=== PATIENT | male | born 1995 | race Caucasian/White ===

== ENCOUNTER 2017-11-28 14:55 | Emergency (ER) | payer OTHER ==
[2017-11-28 17:34] LABS: KETONE, URINE AUTO RFX NEGATIVE (NEGATIVE); LEUKOCYTE ESTERASE UR AUTO RFX NEGATIVE (NEGATIVE); MUCUS, URINE RFX SMALL (NEGATIVE); NITRITE, URINE AUTO RFX NEGATIVE (NEGATIVE); RBC, URINE AUTO RFX 2 /HPF (0-3); SPECIFIC GRAVITY UR AUTO RFX 1.027 (1.002-1.035); SQUAM EPITHELIAL CELL UR AURFX 0 /HPF (0-6); WBC, URINE AUTO RFX 1 /HPF (0-3)
[2017-11-28] MEDS: GASTROGRAFIN SOLUTION 30ML PO ×2 (17:54→18:29)
[2017-11-28] MEDS: NS 1,000 ML IV (17:55)
[2017-11-28 18:12] LABS: BASO # 0.1 10^3/uL (0.0-0.2); BASO % 0.6 % (0.0-1.0); EOS # 0.1 10^3/uL (0.0-0.50); EOS % 1.4 % (0.0-3.0); HEMATOCRIT 49.4 % (42.0-52.0); HEMOGLOBIN 17.3 g/dl (13.5-17.5); IMMATURE GRANULOCYTE % 0.4 % (0-3.0); LYMPH # 2.2 10^3/uL (1.5-6.5); LYMPH % 23.9 % (24.0-44.0); MEAN CORPUSCULAR HEMOGLOBIN 31.7 pg (27.0-33.0); MEAN CORPUSCULAR VOLUME 90.6 fl (80.0-96.0); MONO # 0.8 10^3/uL (0.0-0.8); MONO % 9.1 % (0.0-5.0); NEUTROPHILS # 5.8 10^3/uL (1.8-7.7); NEUTROPHILS % 64.6 % (36.0-66.0); PLATELET COUNT, AUTOMATED 268 10^3/uL (150-450); RED BLOOD COUNT 5.45 10^6/uL (4.30-6.10); RED CELL DISTRIBUTION WIDTH 12.4 % (11.5-14.5)
[2017-11-28 18:31] LABS: ALBUMIN 4.7 GM/DL (3.2-5.2); ALBUMIN/GLOBULIN RATIO 1.21 (1.00-1.93); ALKALINE PHOSPHATASE 64 U/L (45-117); ALT/SGPT 32 U/L (12-78); ANION GAP 9 MEQ/L (8-16); AST/SGOT 22 U/L (7-37); BILIRUBIN,DIRECT 0.2 MG/DL (0.0-0.2); BILIRUBIN,TOTAL 1.4 MG/DL (0.2-1.0); BLOOD UREA NITROGEN 19 MG/DL (7-18); CALCIUM LEVEL 9.3 MG/DL (8.5-10.1); CARBON DIOXIDE LEVEL 29 MEQ/L (21-32); CHLORIDE LEVEL 101 MEQ/L (98-107); CREATININE FOR GFR 1.07 MG/DL (0.70-1.30); GLOMERULAR FILTRATION RATE > 60.0 (>60); GLUCOSE, FASTING 82 MG/DL (70-100); LIPASE 119 U/L (73-393); POTASSIUM SERUM 3.8 MEQ/L (3.5-5.1); SODIUM LEVEL 139 MEQ/L (136-145); TOTAL PROTEIN 8.6 GM/DL (6.4-8.2)
[2017-11-28] MEDS ORDERED: ISOVUE-370 76% 100ML VIAL (Q9967) As Ordered (19:16)
== END 2017-11-28 20:57 | disposition home or self-care (01) ==
LOC: M ED 14:55
DX: S39.011A Strain of muscle, fascia and tendon of abdomen, initial encounter (principal); R11.2 Nausea with vomiting, unspecified; X58.XXXA Exposure to other specified factors, initial encounter; Y92.89 Other specified places as the place of occurrence of the external cause; Z79.899 Other long term (current) drug therapy; Z79.52 Long term (current) use of systemic steroids
CPT/HCPCS: Q9963

== ENCOUNTER → 2017-11-28 | Outpatient (CLI) | payer OTHER | LOC: M LRY 13:36 | DX: R11.2 Nausea with vomiting, unspecified (principal) | CPT/HCPCS: 74021 ==

== ENCOUNTER → 2018-01-27 | Outpatient (REF) | payer OTHER | LOC: M SFHCLERA 11:06 | DX: R53.81 Other malaise (principal) ==

== ENCOUNTER 2018-06-10 22:15 | Emergency (ER) | payer OTHER ==
[~2018-06-10] VITALS: Ht 182.9 cm; Wt 73.6 kg
[~2018-06-10 22:15] MED LIST: MUPI2OI; PRED10TA2 PO
[2018-06-10] MEDS ORDERED: FAMOTIDINE/NS 20 MG/50 ML BAG (S0028) IV ONE ×2 (22:30→22:45)
[2018-06-10] MEDS ORDERED: diphenhydrAMINE INJ 50MG/ML VIAL (J1200) IV STA (22:33)
[2018-06-10] MEDS ORDERED: FAMOTIDINE INJ 20MG/2ML VIAL (S0028) IVP ONE (22:45)
[2018-06-10] MEDS ORDERED: methylPREDNISolone INJ 125 MG/2 ML VIAL (J2930) IV ONE (22:45)
[2018-06-10] MEDS ORDERED: NS 1,000 ML IV ONE (22:45)
[2018-06-10 23:36] LABS: INFLUENZA A AMPLIFICATION NEGATIVE (NEGATIVE); INFLUENZA B AMPLIFICATION NEGATIVE (NEGATIVE)
[2018-06-10] MEDS ORDERED: [UNRECOGNIZED DRUG - CODE] PO (23:41)
[2018-06-10] MEDS ORDERED: ZANT300T9 PO (23:49)
[2018-06-10] MEDS ORDERED: PRED20TA PO (23:49)
[2018-06-10] MEDS ORDERED: BENA25CA4 PO (23:49)
[2018-06-11 00:15] VITALS: BP 113/68
== END 2018-06-11 00:29 | disposition home or self-care (01) ==
LOC: M ED 22:15
DX: T78.1XXA Other adverse food reactions, not elsewhere classified, initial encounter (principal); R21 Rash and other nonspecific skin eruption; L29.8 Other pruritus; R22.1 Localized swelling, mass and lump, neck
CPT/HCPCS: 36415; 87502; 96374; 96375; 99284; J1200; J2930